=== PATIENT | male | born 1960 | race African-American/Black ===

== ENCOUNTER → 2018-07-09 | Day surgery (SDC) | payer MEDICARE ==
[~2018-07-09] MED LIST: ATORVASTATIN CA10 MG PO; CEFAZOLIN SOD 1 GM/NS 50ML 50 ML IV ONE; EPINEPHRINE HCL 1:1000 1ML 1 MG/ML AMP ONE; FENTANYL CITRATE/PF 100MCG/2 ML INJ ONE; HYDROCODONE/APAP 7.5MG-325MG 1 EA TAB ONE; IBUPROFEN200 MG PO; LABETALOL HCL 20 ML ONE; LIDOCAINE 2% /EPINEPHRINE 20 ML SDV INJ ONE; MIDAZOLAM HCL 2 MG/2 ML VIAL ONE; ROPIVACAINE 0.5% 5 MG/ML 30 ML SDV ONE
--- OUTSIDE RECORDS SUMMARY | 2018-07-09 08:55 | XMS REPORT | Summary of Care ---
Author Author [facility] Organization [facility] Address Unknown Phone Unavailable Encounter [facility] Salome(AILYN) [id number] Date(s): 05/08/16 - 05/08/16 [facility] [address], [place], [place] [phone] Discharge Diagnosis: Laceration of thumb, left Discharge Diagnosis: Anterior shoulder dislocation Discharge Diagnosis: Laceration of finger, index Discharge Disposition: Home or Self Care Attending Physician: Evan Howard MD Vital Signs 1 2 3 Most recent to oldest [Reference Range]: 167.64 cm (05/08/16 10:24 AM) Height 97.5 DegF (05/08/16 12:28 PM) 97.5 DegF (05/08/16 10:24 AM) Temperature Oral [96.4-99.1 DegF] 145/87 mmHg *HI* (05/08/16 2:00 PM) 154/74 mmHg *HI* (05/08/16 1:30 PM) 160/98 mmHg *HI* (05/08/16 1:00 PM) Blood Pressure [90-140/60-90 mmHg] 18 BRMIN (05/08/16 2:00 PM) 18 BRMIN (05/08/16 1:30 PM) 18 BRMIN (05/08/16 1:00 PM) Respiratory Rate [14-20 BRMIN] 74 bpm (05/08/16 2:00 PM) 75 bpm (05/08/16 1:30 PM) 76 bpm (05/08/16 1:00 PM) Peripheral Pulse Rate [60-100 bpm] 78.636 kg (05/08/16 10:24 AM) Weight 27.98 m2 (05/08/16 10:24 AM) Body Mass Index Problem List No data available for this section Allergies, Adverse Reactions, Alerts Substance Reaction Severity Status NKDA Active Medications etomidate 10 mg, 5 mL, Route: IVP, Drug form: INJ, ONCE, Dosing Weight 78.636, kg, Priorit y: STAT, Start date: 05/08/16 11:30:00 DOOR TECHNICIAN, Stop date: 05/08/16 11:30:00 DOOR TECHNICIAN Notes: (Same as: Amidate). Per state nursing law etomidate can only be given by a nurse if patient is intubated or being intubated (unless the nurse is a MA[employer]GER [employer]). Start Date: 05/08/16 Stop Date: 05/08/16 Status: Completed ketOROLAC 30 mg, 1 mL, Route: IVP, Drug form: INJ, ONCE, Dosing Weight 78.636, kg, Priorit y: STAT, Start date: 05/08/16 11:28:00 DOOR TECHNICIAN, Stop date: 05/08/16 11:28:00 DOOR TECHNICIAN Notes: (Same as:Toradol) IV bolus must be given >15 seconds. Give IM administration slowly and deeply into the muscle.Not for use > 4 days MEDICATION WASTE Product Size: 30 mgProduct Wasted: ___ mg Start Date: 05/08/16 Stop Date: 05/08/16 Status: Completed lidocaine 1% 1 ml, Route: SUB-Q, Drug Form: INJ, Dosing Weight 78.636, kg, ONCE, STAT, Start date: 05/08/16 13:15:00 DOOR TECHNICIAN, Stop date: 05/08/16 13:15:00 DOOR TECHNICIAN Notes: Preservative free. (Same as: Xylocaine MPF) Start Date: 05/08/16 Stop Date: 05/08/16 Status: Completed morphine Sulfate 4 mg, 1 mL, Route: IVP, Drug form: INJ, ONCE, Dosing Weight 78.636, kg, Priority : STAT, Start date: 05/08/16 11:28:00 DOOR TECHNICIAN, Stop date: 05/08/16 11:28:00 DOOR TECHNICIAN Notes: (Same as:MORPhine Sulfate) Start Date: 05/08/16 Stop Date: 05/08/16 Status: Completed [place] 5/325 oral tablet 1 tab, Route: PO, Drug Form: TAB, Dosing Weight 78.636, kg, ONCE, STAT, Start da te: 05/08/16 10:29:00 DOOR TECHNICIAN, Stop date: 05/08/16 10:29:00 DOOR TECHNICIAN Start Date: 05/08/16 Stop Date: 05/08/16 Status: Completed Saline Flush 0.9% 10 mL, Route: IVP, Drug Form: INJ, Dosing Weight 78.636, kg, PRN, PRN Line Flush , Start date: 05/08/16 11:30:00 DOOR TECHNICIAN, Duration: 30 day, Stop date: 06/07/16 12:29 :00 CDT Notes: (Same as: BD Posiflush) Start Date: 05/08/16 Stop Date: 05/08/16 Status: Discontinued tramadol 50 mg oral tablet 50 mg=1 tab, PO, Q6H, PRN Pain, X 10 day, # 30 tab, 0 Refill(s) Start Date: 05/08/16 Stop Date: 05/18/16 Status: Ordered Results No data available for this section Immunizations No data available for this section Procedures Procedure Date Related Diagnosis Body Site Moderate sedation1 05/08/16 1reduction r/t tree limb falling onto L shoulder apx 0900 this am. Social History Social History Type Response Smoking Status Current some day smoker; Type: Cigars; Ready to change: No; Concerns about tobacco use in household: No; Lives with someone who smokes; Cigarette Smoking Last 365 Days Yes; Reg Smoking Cessation Counseling No1 1cigars, not cigarettes Assessment and Plan No data available for this section
--- OUTSIDE RECORDS SUMMARY | 2018-07-09 08:55 | XMS REPORT | Continuity of Care Document ---
Author Author [facility] Address Unknown Phone Unavailable Problems Problem Status Onset Date Classification Date Reported Comments Source Discharge Diagnosis: Laceration of thumb, left 05/08/2016 05/11/2016 [facility] Discharge Diagnosis: Anterior shoulder dislocation 05/08/2016 05/11/2016 [facility] Discharge Diagnosis: Laceration of finger, index 05/08/2016 05/11/2016 [facility] LEFT ARM INJURY Active 05/08/2016 [facility] 816.01 - FX MID/PRX PHAL Active 08/15/2012 [facility] Medications Medication Details Route Status Patient Instructions Ordering Provider Order Date Source tramadol hydrochloride 50 MG Oral Tablet 50 mg=1 tab, PO, Q6H, PRN Pain, X 10 day, # 30 tab, 0 Refill(s) Active 05/08/2016 [facility] Lidocaine Hydrochloride 10 MG/ML Injectable Solution 1 ml, Route: SUB-Q, Drug Form: INJ, Dosing Weight 78.636, kg, ONCE, STAT, Start date: 05/08/16 13:15:00 ANESTHESIOLOGY MEDICAL DOCTOR, Stop date: 05/08/16 13:15:00 CSTNotes: Preservative free. (Same as: Xylocaine MPF) Inactive 05/08/2016 [facility] Saline Flush 0.9% 10 mL, Route: IVP, Drug Form: INJ, Dosing Weight 78.636, kg, PRN, PRN Line Flush, Start date: 05/08/16 11:30:00 ANESTHESIOLOGY MEDICAL DOCTOR, Duration: 30 day, Stop date: 06/07/16 12:29:00 CDTNotes: (Same as: BD Posiflush) Inactive 05/08/2016 [facility] Etomidate 10 mg, 5 mL, Route: IVP, Drug form: INJ, ONCE, Dosing Weight 78.636, kg, Priority: STAT, Start date: 05/08/16 11:30:00 ANESTHESIOLOGY MEDICAL DOCTOR, Stop date: 05/08/16 11:30:00 CSTNotes: (Same as: Amidate). Per state nursing law etomidate can only be given by a nurse if patient is intubated or being intubated (unless the nurse is a PAID SEARCH ANALYST). Inactive 05/08/2016 [facility] Ketorolac 30 mg, 1 mL, Route: IVP, Drug form: INJ, ONCE, Dosing Weight 78.636, kg, Priority: STAT, Start date: 05/08/16 11:28:00 ANESTHESIOLOGY MEDICAL DOCTOR, Stop date: 05/08/16 11:28:00 CSTNotes: (Same as:Toradol) IV bolus must be given >15 seconds. Give IM administration slowly and deeply into the muscle. Not for use > 4 days MEDICATION WASTE Product Size: 30 mg Product Wasted: ___ mg Inactive 05/08/2016 [facility] Morphine 4 mg, 1 mL, Route: IVP, Drug form: INJ, ONCE, Dosing Weight 78.636, kg, Priority: STAT, Start date: 05/08/16 11:28:00 ANESTHESIOLOGY MEDICAL DOCTOR, Stop date: 05/08/16 11:28:00 CSTNotes: (Same as:MORPhine Sulfate) Inactive 05/08/2016 [facility] Acetaminophen 325 MG / Hydrocodone Bitartrate 5 MG Oral Tablet [[place] 5/325] 1 tab, Route: PO, Drug Form: TAB, Dosing Weight 78.636, kg, ONCE, STAT, Start date: 05/08/16 10:29:00 ANESTHESIOLOGY MEDICAL DOCTOR, Stop date: 05/08/16 10:29:00 ANESTHESIOLOGY MEDICAL DOCTOR Inactive 05/08/2016 [facility] Allergies, Adverse Reactions, Alerts Substance Category Reaction Severity Reaction type Status Date Reported Comments Source Immunizations Immunization Date Given Site Status Last Updated Comments Source Results Order Name Results Value Reference Range Date Interpretation Comments Source Shoulder series DX Shoulder series DX Exam: Left Shoulder series DX, Left Humerus 2 views DX Clinical Indication: Post-Reduction Comparison: Left shoulder series performed earlier same date. FINDINGS: 3 views of the left shoulder and 2 views of the left humerus are performed. Left Shoulder: Successful interval reduction of the left glenohumeral joint, now anatomically aligned. Large Hill-Sachs deformity is present along the posterosuperior humeral head. No other acute fracture identified. The acromioclavicular joint is anatomically aligned. The soft tissues are unremarkable. No radiopaque foreign body. Left Humerus: No other acute fracture identified in the left humerus. The left elbow region is unremarkable. The soft tissues are unremarkable. No radiopaque foreign body. IMPRESSION: 1. Successful reduction of the left glenohumeral joint. 2. Large Hill-Sachs deformity. 3. No other acute osseous abnormality in the left humerus. SL: [id number] 05/08/2016 - - Read by: Trey Moreland MD Dictated Date/time: 05/08/16 12:49 Electronically Signed by: Trey Moreland MD 05/08/16 12:52 FINAL REPORT [facility] Humerus 2 views DX Humerus 2 views DX Exam: Left Shoulder series DX, Left Humerus 2 views DX Clinical Indication: Post-Reduction Comparison: Left shoulder series performed earlier same date. FINDINGS: 3 views of the left shoulder and 2 views of the left humerus are performed. Left Shoulder: Successful interval reduction of the left glenohumeral joint, now anatomically aligned. Large Hill-Sachs deformity is present along the posterosuperior humeral head. No other acute fracture identified. The acromioclavicular joint is anatomically aligned. The soft tissues are unremarkable. No radiopaque foreign body. Left Humerus: No other acute fracture identified in the left humerus. The left elbow region is unremarkable. The soft tissues are unremarkable. No radiopaque foreign body. IMPRESSION: 1. Successful reduction of the left glenohumeral joint. 2. Large Hill-Sachs deformity. 3. No other acute osseous abnormality in the left humerus. SL: [id number] 05/08/2016 - - Read by: Trey Moreland MD Dictated Date/time: 05/08/16 12:49 Electronically Signed by: Trey Moreland MD 05/08/16 12:52 FINAL REPORT [facility] Shoulder series DX Shoulder series DX Exam: Shoulder series DX Clinical Indication: Pain Post Trauma; Comparison: None FINDINGS: 2 views of the left shoulder. Humeral head lies inferomedial to the glenoid. Evaluation of the glenoid and humeral head is limited. No obvious fracture. Mild soft tissue swelling is noted at the shoulder. IMPRESSION: Anterior shoulder dislocation. Recommend complete shoulder series and/or MRI to assess for osseous trauma. SL: [id number] 05/08/2016 - - Read by: Vidhi Flores MD Dictated Date/time: 05/08/16 10:56 Electronically Signed by: Vidhi Flores MD 05/08/16 11:[address] [facility] AP lateral oblique Hand AP lateral oblique NAME: WALTER SALDIVAR : 1960 ; M, ORDERING PHYSICIAN: Amber Casillas Left Hand AP lateral oblique : Sep 05, 2012 10:48:00 AM . INDICATION: See Clinic Indication. 816.01 Closed Fracture of Middle or Proximal Phalanx or Phalanges of Hand Dictation code:53 AP, both obliques and lateral There is a an oblique fracture through the tuft the terminal phalanx of the left long finger. The fracture fragments appear to be well aligned. There is suggestion of bridging callus although radial portion the fracture line is still visualized. No other significant acute posttraumatic bony or articular abnormality is seen. 09/05/2012 - - Read by: Rafi Young Dictated Date/time: 09/05/12 11:23 Electronically Signed by: Rafi Young MD 09/05/12 11:25 FINAL REPORT [facility] Outpatient Imaging [facility] AP lateral oblique Hand AP lateral oblique NAME: WALTER SALDIVAR : 1960 SEX: Telma Ordering Physician: Amber Casillas The left Hand AP lateral oblique : August 15, 2012 11:03:00 AM. CLINICAL INDICATION: 816.01, closed fx of the proximal or middle phalanx of the second finger / See Clinic Indication Comparison Examination: None. FINDINGS: Four views left hand submitted for review. Some interval healing changes are suggested at the previously described fracture of the second digit proximal phalanx There is some improvement in the alignment at the fracture site as compared to previous study. No new fractures. The digit and thumb interphalangeal joints are unremarkable. The metacarpophalangeal joints are unremarkable. The carpometacarpal joint regions are unremarkable. There is no soft tissue swelling or radiopaque foreign bodies. The visualized incompletely evaluated wrist region is grossly unremarkable. If there is further concern, recommend follow-up radiographs or bone scan for complete assessment. OPINION: Interval healing changes and improvement in the alignment at the the previously described second digit proximal phalanx fracture SL: 24 08/15/2012 - - Read by: Chidi Corona Dictated Date/time: 08/15/12 11:25 Electronically Signed by: Chidi Corona MD 08/15/12 11:28 FINAL REPORT [facility] Vital Signs Vital Sign Value Date Comments Source Respitory Rate 18 05/08/2016 [facility] Systolic (mm Hg) 145 05/08/2016 [facility] Diastolic (mm Hg) 87 05/08/2016 [facility] Heart Rate 74 05/08/2016 [facility] Heart Rate 75 05/08/2016 [facility] Respitory Rate 18 05/08/2016 [facility] Systolic (mm Hg) 154 05/08/2016 [facility] Diastolic (mm Hg) 74 05/08/2016 [facility] Respitory Rate 18 05/08/2016 [facility] Systolic (mm Hg) 160 05/08/2016 [facility] Diastolic (mm Hg) 98 05/08/2016 [facility] Heart Rate 76 05/08/2016 [facility] Temperature Oral (F) 97.5 F 05/08/2016 [facility] BMI Calculated 27.98 05/08/2016 [facility] Weight 78.636 05/08/2016 [facility] Height 167.64 cm 05/08/2016 [facility] Temperature Oral (F) 97.5 F 05/08/2016 [facility] Encounters Location Location Details Encounter Type Encounter Number Reason For Visit Attending Provider ADM Date DC Date Status Source OD [id number] 816.01 - FX MID/PRX PHAL AMBER CASILLAS 08/15/2012 Active [facility] Outpatient Imaging [facility] Emergency [id number] Evan Howard 05/08/2016 05/08/2016 [facility] Procedures Procedure Code Date Perfomer Comments Source Moderate sedation<sup>1</sup> [id number] 05/08/2016 reduction r/t tree limb falling onto L shoulder apx 0900 this am. [facility]
--- OUTSIDE RECORDS SUMMARY | 2018-07-09 08:55 | XMS REPORT | CCD ---
Author Author Auto Generated Organization [facility] Address Unknown Phone Unavailable Care Team Providers Care Order Checker Name Role Phone Shoaib Casillas CP Allergies, Adverse Reactions, Alerts Substance Reaction Status NKDA Active
--- OUTSIDE RECORDS SUMMARY | 2018-07-09 08:55 | XMS REPORT | CCD ---
Author Author Auto Generated Organization [facility] Address Unknown Phone Unavailable Care Team Providers Care Land Law Examiner Name Role Phone Shoaib Casillas CP Allergies, Adverse Reactions, Alerts Substance Reaction Status NKDA Active
[2018-07-09 14:25] VITALS: BP 134/80
--- NOTE | 2018-07-11 04:33 | Operative Report ---
DATE OF PROCEDURE: 07/09/2018 SURGEON: Main Benavides MD [employer] OPERATIONS OFFICER: Stuart Carlson, certified PA. PREOPERATIVE DIAGNOSIS: Left shoulder rotator cuff tear. POSTOPERATIVE DIAGNOSIS: Left shoulder rotator cuff tear. PROCEDURE: Left shoulder arthroscopy, subacromial decompression, rotator cuff repair. INDICATIONS: The patient is a 57-year-old gentleman, who has a long history of a rotator cuff tear after a dislocation of his left shoulder. He was seen a couple of years ago in surgery. Surgical repair was recommended. He was lost to follow up. He presents now with a retracted massive rotator cuff tear. The treatment options have been discussed. The patient understands that an attempted surgical repair may not be successful. He also understands the possibility of future shoulder replacement surgery. He wishes to proceed with an arthroscopic attempted repair of the rotator cuff. PROCEDURE IN DETAIL: The patient was brought to the operating room and placed under general anesthetic. He received a regional block and prophylactic antibiotics in the holding area. He was positioned in the beach chair position on the shoulder table. His left upper extremity was prepped and draped in a sterile manner. A preoperative time-out was performed. Standard posterior arthroscopy portal was established. The shoulder was insufflated with sterile saline. There was an obvious communication between the subacromial space and the intra-articular space. The shoulder joint could easily be inspected. The glenohumeral surfaces were well preserved. There was a large Hill-Sachs lesion. A lateral working portal was established. The biceps tendon and its anchor at the supraglenoid tubercle were probed. They were hooked stable. The tendon appeared to be in good shape. A subacromial bursectomy and bony decompression were performed. A grasper was introduced into the shoulder and the tendon was mobilized. It was quite retracted and under tension. Further attempts were made to free up and mobilize the tendon. An [employer] Speed Bridge rotator cuff repair system was used. Two airplane pilot crop dusting holes were placed into the articular margin at the greater tuberosity. A bioabsorbable suture anchors preloaded with FiberTape stitches were seated. These were passed through the tendon using an Ar[employer]rex scorpion suture passer. An anterior shuttle portal had been established. The rotator cuff was then repaired down to the bleeding cancellous bone using secondary suture anchors placed into the proximal lateral humeral cortex. The tendon was under significant tension, but there was opposition between the end of the tendon and the cancellous bone. One of the auxiliary stitches was used to augment the repair. The arthroscopic instruments were then removed. The portal incisions were closed with nylon stitches. A sterile bandage and ultrasling were applied. The patient was extubated and transported to the recovery room in stable condition. Estimated blood loss was 10 cc. Main Benavides MD DR/RINA /[id number]
== END | disposition home or self-care (01) ==
LOC: OR 08:52
PROVIDERS: ATTEND Specialist
DX: S46.022A Laceration of muscle(s) and tendon(s) of the rotator cuff of left shoulder, initial encounter (principal); S43.015A Anterior dislocation of left humerus, initial encounter; E78.5 Hyperlipidemia, unspecified; X58.XXXA Exposure to other specified factors, initial encounter; Z01.810 Encounter for preprocedural cardiovascular examination; Z87.891 Personal history of nicotine dependence
CPT/HCPCS: 29827; 93005; C1713; J0171; J0690; J2001; J2250; J2795; J3490